=== PATIENT | female | born 1955 | race Two or more races ===

== ENCOUNTER 2018-12-30 11:24 | Emergency (ER) | payer MEDICAID, OTHER ==
[~2018-12-30] VITALS: Ht 152.4 cm; Wt 81.6 kg
[2018-12-30] MEDS ORDERED: LORazepam 0.5 MG TAB PO ONE (12:00)
[2018-12-30 12:21] LABS: Basophils # (auto) 0.1 uL; Basophils % (auto) 0.8 % (0.0-2.0); Eosinophils # (auto) 0.1 uL; Eosinophils % (auto) 1.7 % (0.0-7.0); Hematocrit 45.1 % (36.0-46.0); Hemoglobin 15.5 g/dL (12.2-16.2); Lymphocytes # (auto) 3.3 uL; Lymphocytes % (auto) 45.6 % (10.0-50.0); Mean Corpuscular Hemoglobin 31.5 pg (28.0-32.0); Mean Corpuscular Hgb Conc. 34.4 g/dL (32.0-36.0); Mean Corpuscular Volume 91.4 fL (80.0-100.0); Monocytes # (auto) 0.4 uL; Monocytes % (auto) 5.6 % (0.0-12.0); Neutrophils # (auto) 3.4 uL; Neutrophils % (auto) 46.3 % (37.0-80.0); Platelet Count (auto) 233 10^3/uL (140-450); Red Blood Cells 4.93 10^6/uL (4.0-5.20); Red Cell Distribution Width 12.6 % (11.8-14.3); White Blood Cell 7.3 10^3/uL (4.4-10.8)
[2018-12-30 12:37] LABS: Albumin 3.8 g/dL (3.4-5.0); Calcium 8.6 mg/dL (8.5-10.1); Potassium 3.9 mmol/L (3.5-5.1)
[2018-12-30 12:41] LABS: BUN/Creatinine Ratio 16.3; Bilirubin, Total 0.3 mg/dL (0.2-1.0); Total Protein 7.5 g/dL (6.4-8.2)
[2018-12-30 12:43] LABS: Salicylate 2.6 mg/dL (2.8-20.0)
[2018-12-30 12:52] LABS: Acetaminophen < 2.0 ug/mL (10-30)
[2018-12-30 13:44] LABS: Urine WBC None Seen /hpf (0 - 5)
[2018-12-30 13:57] LABS: Urine Amorphous Crystal MOD /hpf (None Seen); Urine Bacteria NONE SEEN /hpf (None Seen); Urine Blood Negative /uL (Negative); Urine Mucus FEW (None Seen); Urine Specific Gravity 1.023 (1.001-1.035)
[2018-12-30 14:06] LABS: Alcohol, Urine < 3.0 mg/dL (0-5); Amphetamine Screen, Urine NEGATIVE (NEGATIVE); Barbiturate Scree,Urine NEGATIVE (NEGATIVE); Benzodiazephine Screen, Urine NEGATIVE (NEGATIVE); Cannabinoid Screen, Urine NEGATIVE (NEGATIVE); Cocaine Screen, Urine NEGATIVE (NEGATIVE); Opiate Scree,Urine NEGATIVE (NEGATIVE); Phencyclidine Screen, Urine NEGATIVE (NEGATIVE)
[2018-12-30 15:45] VITALS: BP 142/80
== END 2018-12-30 14:57 | disposition home or self-care (01) ==
LOC: ER 11:24
DX: F41.9 Anxiety disorder, unspecified (principal); F17.210 Nicotine dependence, cigarettes, uncomplicated; Z90.710 Acquired absence of both cervix and uterus
CPT/HCPCS: 36415; 80053; 80307; 80329; 81001; 85025

== ENCOUNTER 2019-02-01 08:39 | Emergency (ER) | payer SELFPAY ==
[~2019-02-01] VITALS: Ht 152.4 cm; Wt 72.6 kg
[2019-02-01 09:51] LABS: Basophils # (auto) 0.1 uL; Basophils % (auto) 0.8 % (0.0-2.0); Eosinophils # (auto) 0.1 uL; Eosinophils % (auto) 0.6 % (0.0-7.0); Hematocrit 46.5 % (36.0-46.0); Hemoglobin 15.8 g/dL (12.2-16.2); Lymphocytes # (auto) 3.1 uL; Lymphocytes % (auto) 32.2 % (10.0-50.0); Mean Corpuscular Volume 91.1 fL (80.0-100.0); Monocytes # (auto) 0.6 uL; Monocytes % (auto) 6.3 % (0.0-12.0); Neutrophils # (auto) 5.8 uL; Neutrophils % (auto) 60.1 % (37.0-80.0); Nucleated Red Blood Cells % 0.4 %; Platelet Count (auto) 270 10^3/uL (140-450); Red Blood Cells 5.11 10^6/uL (4.0-5.20); Red Cell Distribution Width 12.6 % (11.8-14.3); White Blood Cell 9.7 10^3/uL (4.4-10.8)
[2019-02-01 10:09] LABS: Alanine Aminotransferase 37 U/L (13-56); Albumin 3.9 g/dL (3.4-5.0); Anion Gap 9 (5-15); Aspartate Aminotransferase 19 U/L (15-37); BUN/Creatinine Ratio 19.7; Blood Urea Nitrogen 13 mg/dL (7-18); Calcium 8.9 mg/dL (8.5-10.1); Carbon Dioxide 24 mmol/L (21-32); Chloride 109 mmol/L (98-107); GFR African American 116 mL/min; GFR Non-African American 96 mL/min; Glucose 111 mg/dL (74-106); Magnesium 2.3 mg/dL (1.6-2.6); Potassium 3.8 mmol/L (3.5-5.1); Sodium 142 mmol/L (136-145)
[2019-02-01 10:15] LABS: Alkaline Phosphatase 103 U/L (45-117); Bilirubin, Total 0.4 mg/dL (0.2-1.0); Total Protein 7.8 g/dL (6.4-8.2)
[2019-02-01 16:00] VITALS: BP 155/80
== END 2019-02-01 16:13 | disposition home or self-care (01) ==
LOC: EDBD 08:39 → EDUNIT# 08:39 → ER 08:40
DX: R07.89 Other chest pain (principal); F41.9 Anxiety disorder, unspecified; F17.210 Nicotine dependence, cigarettes, uncomplicated; Z90.710 Acquired absence of both cervix and uterus
CPT/HCPCS: 36415; 71046; 80053; 83735; 84484; 85025

== ENCOUNTER 2019-02-01 16:50 | Emergency (ER) | payer MEDICAID ==
[~2019-02-01] VITALS: Ht 152.4 cm; Wt 72.6 kg
[2019-02-02 00:10] LABS: Urine Bacteria NONE SEEN /hpf (None Seen); Urine Blood Negative /uL (Negative); Urine Specific Gravity 1.006 (1.001-1.035); Urine WBC 1 /hpf (0 - 5)
[2019-02-02 00:21] LABS: Alcohol, Urine < 3.0 mg/dL (0-5); Amphetamine Screen, Urine NEGATIVE (NEGATIVE); Barbiturate Scree,Urine NEGATIVE (NEGATIVE); Benzodiazephine Screen, Urine NEGATIVE (NEGATIVE); Cannabinoid Screen, Urine NEGATIVE (NEGATIVE); Cocaine Screen, Urine NEGATIVE (NEGATIVE); Opiate Scree,Urine NEGATIVE (NEGATIVE); Phencyclidine Screen, Urine NEGATIVE (NEGATIVE)
[2019-02-02] MEDS ORDERED: LORazepam 0.5 MG TAB PO ONE ×2 (00:45→08:15)
[2019-02-02] MEDS ORDERED: traZODone HCL 50 MG TAB PO PRN (08:00)
[2019-02-02] MEDS: hydrOXYzine 25 MG TAB or CAP PO PRN (14:31)
[2019-02-03] MEDS ORDERED: LORazepam 2MG/ML-1ML VIAL IM ONE (01:00)
[2019-02-03] MEDS ORDERED: NICOTINE 14 MG/24HR TOPICAL PATCH TD ONE (07:45)
[2019-02-03] MEDS: risperiDONE 1 MG TAB PO PRN (07:49)
[2019-02-03] MEDS: hydrOXYzine 25 MG TAB or CAP PO PRN (07:49)
[2019-02-03] MEDS ORDERED: LORazepam 0.5 MG TAB PO ONE (14:45)
[2019-02-03] MEDS: PANTOPRAZOLE 40 MG TAB PO SCH (18:14)
[2019-02-04] MEDS ORDERED: LORazepam 2MG/ML-1ML VIAL IM ONE ×2 (01:45→20:15)
[2019-02-04] MEDS: OLANZapine 5 MG TAB PO SCH (01:48)
[2019-02-04] MEDS: hydrOXYzine 25 MG TAB or CAP PO PRN ×2 (01:48→17:13)
[2019-02-04] MEDS ORDERED: LORazepam 0.5 MG TAB PO ONE (11:00)
[2019-02-04] MEDS: PANTOPRAZOLE 40 MG TAB PO SCH (12:00)
[2019-02-05] MEDS ORDERED: hydrOXYzine 25 MG TAB or CAP ONE (03:13)
[2019-02-05] MEDS ORDERED: OLANZapine 5 MG TAB ONE ×2 (03:13→21:51)
[2019-02-05] MEDS ORDERED: traZODone HCL 50 MG TAB ONE (03:13)
[2019-02-05] MEDS: OLANZapine 5 MG TAB PO SCH ×2 (03:15→21:56)
[2019-02-05] MEDS: hydrOXYzine 25 MG TAB or CAP PO PRN ×2 (03:15→20:30)
[2019-02-05] MEDS: PANTOPRAZOLE 40 MG TAB PO SCH (10:00)
[2019-02-05 19:12] VITALS: BP 154/84
[2019-02-06] MEDS ORDERED: risperiDONE 1 MG TAB ONE (02:23)
[2019-02-06] MEDS: risperiDONE 1 MG TAB PO PRN (02:27)
== END 2019-02-06 05:17 | disposition home or self-care (01) ==
LOC: ER 17:02
DX: R45.851 Suicidal ideations (principal); F32.9 Major depressive disorder, single episode, unspecified; F41.9 Anxiety disorder, unspecified; F17.210 Nicotine dependence, cigarettes, uncomplicated; Z90.710 Acquired absence of both cervix and uterus
CPT/HCPCS: 80307; 81001; 96372; 99284; J2060